=== PATIENT | male | born 2000 | race Caucasian/White ===

== ENCOUNTER 2019-09-05 15:01 | Emergency (ER) | payer BC, OTHER ==
--- NOTE | 2019-09-05 15:04 | UC ---
Throat Pain/Nasal Gerald HPI - HPI Summary HPI Summary: 19 yo male presents with sore throat. He tells me that for the last 3 days has had a sore throat, swollen tonsils, and body aches. He has been taking ibuprofen for his discomfort with good relief. He is eating, drinking, and tolerating po well. Denies fever, chills, rash, cough, abdominal pain, n/v - History of Current Complaint Stated Complaint: SORE THROAT Time Seen by Provider: 09/05/19 15:03 Hx Obtained From: Patient Onset/Duration: Sudden Onset Severity: Moderate Pain Intensity: 6 Pain Scale Used: 0-10 Numeric - Allergies/Home Medications Allergies/Adverse Reactions: Allergies Allergy/AdvReac Type Severity Reaction Status Date / Time cefprozil [From Cefzil] Allergy Unknown Rash Verified 09/05/19 15:19 Home Medications: Home Medications Albuterol HFA INHALER* [Ventolin HFA Inhaler*] 2 puff INH Q4H PRN 09/05/19 [ History Confirmed 09/05/19] Dextromethorphn/Acetaminoph/Cp [Vicks Nyquil Cold & Flu N] 1 liq PO PRN [History] Ibuprofen TAB* [Advil TAB*] 200 mg PO Q6H PRN 09/05/19 [History Confirmed ] PMH/Surg Hx/FS Hx/Imm Hx - Additional Past Medical History Additional PMH: None - Surgical History Surgical History: None - Family History Known Family History: Positive: None - Social History Occupation: Student Lives: Dormitory/Roommates Alcohol Use: Occasionally Substance Use Type: None Smoking Status (MU): Never Smoked Tobacco Review of Systems All Other Systems Reviewed And Are Negative: No Constitutional: Positive: Negative Skin: Positive: Negative Eyes: Positive: Negative ENT: Positive: Sore Throat Respiratory: Positive: Negative Cardiovascular: Positive: Negative Gastrointestinal: Positive: Negative Neurological: Positive: Negative Psychological: Positive: Negative Physical Exam - Summary Physical Exam Summary: GENERAL: NAD. WDWN. No pain distress. SKIN: No rashes, sores, lesions, or open wounds. HEENT: Head: AT/NC Eyes: Conjunctiva clear without inflammation or discharge. Ears: Hearing grossly normal. TMs intact, no bulging, erythema, or edema. Nose: Nasal mucosa pink and moist. TTP maxillary > frontal sinus. Throat: Posterior oropharynx mild erythema and 2+ tonsillar enlargement. Mild white exudates. Uvula midline. No hoarse voice or muffled voice. NECK: Supple. Tonsillar b/l LAD nttp CHEST: CTAB. No r/r/w. No accessory muscle use. Breathing comfortably and in no distress. CV: RRR.. Pulses intact. Cap refill <2seconds NEURO: Alert. PSYCH: Age appropriate behavior. Triage Information Reviewed: Yes Vital Signs: Vital Signs: Temp Pulse Resp BP Pulse Ox 97.7 F 83 18 121/70 99 09/05/19 15:22 09/05/19 15:22 09/05/19 15:22 09/05/19 15:22 09/05/19 15:22 Laboratory Tests 09/05/19 15:35 Group A Strep Rapid Negative Vital Signs Reviewed: Yes Throat Pain/Nasal Course/Dx - Course Course Of Treatment: POC strep negative. Suspect tonsillitis. Will treat with zpak and test for mono - Differential Dx/Diagnosis Provider Diagnosis: Tonsillitis Discharge ED - Sign-Out/Discharge Documenting (check all that apply): Patient Departure All imaging exams completed and their final reports reviewed: No Studies - Discharge Plan Condition: Stable Disposition: HOME Prescriptions: Azithromycin TAB* [Zithromax TAB (Z-MT) 250 mg #6 tabs] 2 tab PO .TODAY, THEN 1 DAILY #1 mt Patient Education Materials: Tonsillitis (ED) Referrals: No Primary Care Phys,NOPCP [Primary Care Provider] - Additional Instructions: If you develop a fever, shortness of breath, chest pain, new or worsening symptoms - please call your PCP or go to the ED immediately. - Billing Disposition and Condition Condition: STABLE Disposition: Home
[2019-09-05 15:30] VITALS: BP 121/70
--- NOTE | 2019-09-06 09:48 | UC ---
- Progress Note Progress Note: + mono -pt is on zpack w/ neg strep -dc zpack -no exertional physical activity bc risk of splenic ruptuire -he is contagious and needs to be cautious. Course/Dx - Diagnoses Provider Diagnoses: Tonsillitis Discharge ED - Sign-Out/Discharge Documenting (check all that apply): Post-Discharge Follow Up All imaging exams completed and their final reports reviewed: No Studies - Discharge Plan Condition: Stable Disposition: HOME Prescriptions: Azithromycin TAB* [Zithromax TAB (Z-MT) 250 mg #6 tabs] 2 tab PO .TODAY, THEN 1 DAILY #1 mt Patient Education Materials: Tonsillitis (ED) Referrals: No Primary Care Phys,NOPCP [Primary Care Provider] - Additional Instructions: If you develop a fever, shortness of breath, chest pain, new or worsening symptoms - please call your PCP or go to the ED immediately. - Billing Disposition and Condition Condition: STABLE Disposition: Home
== END 2019-09-05 15:59 | disposition home or self-care (01) ==
LOC: UCCORT 15:01
DX: J03.90 Acute tonsillitis, unspecified (principal); Z88.1 Allergy status to other antibiotic agents
CPT/HCPCS: 36415; 86308; 87651; 99202; G0463

== ENCOUNTER 2019-09-07 20:09 | Emergency (ER) | payer BC, OTHER ==
[2019-09-07 20:54] VITALS: BP 129/69
--- NOTE | 2019-09-07 21:22 | UC ---
Throat Pain/Nasal Gerald HPI - HPI Summary HPI Summary: Patient is 19 year old male , who present today to the urgent care with sore throat. Sore throat since last Sunday. He was seen here Sunday09/05/19; strep test negative, mono positive. States throat pain getting worse. No fever. Taking 600- 800mg prn w/ not much relief; last dose today 1700. Denies any fever, cough , chest pain or shortness or breath. - History of Current Complaint Chief Complaint: UCRespiratory Stated Complaint: SORE THROAT/ FOLLOW UP MONO Time Seen by Provider: 09/07/19 21:13 Hx Obtained From: Patient Pain Intensity: 7 - Allergies/Home Medications Allergies/Adverse Reactions: Allergies Allergy/AdvReac Type Severity Reaction Status Date / Time cefprozil [From Cefzil] Allergy Unknown Rash Verified 09/07/19 20:48 PMH/Surg Hx/FS Hx/Imm Hx - Additional Past Medical History Additional PMH: Past Medical History : Wrist fracture Past Surgical History: Left ankle ORIF Family History : non contributory Social History : Occasional alcohol, non smoker, no drug use. Student at [employer] Previously Healthy: Yes - Surgical History Surgical History: Yes Surgery Procedure, Year, and Place: LEFT ankle fracture w/ hardware 2017 - Family History Known Family History: Positive: None - Social History Alcohol Use: Occasionally Substance Use Type: None Smoking Status (MU): Never Smoked Tobacco Review of Systems All Other Systems Reviewed And Are Negative: Yes Constitutional: Positive: Fatigue. Negative: Fever Skin: Positive: Negative Eyes: Positive: Negative ENT: Positive: Sore Throat, Other - Dysphagia Respiratory: Positive: Negative. Negative: Cough Cardiovascular: Positive: Negative Gastrointestinal: Positive: Negative Genitourinary: Positive: Negative Motor: Positive: Negative Neurovascular: Positive: Negative Musculoskeletal: Positive: Negative Neurological: Positive: Negative Psychological: Positive: Negative Is Patient Immunocompromised?: No Physical Exam - Summary Physical Exam Summary: Physical Exam: Const: Appears well. No signs of apparent distress present. Alert and oriented x 3. Musculo: Walks with a normal gait. Head/Face: Atraumatic, normocephalic on inspection. Eyes: EOMI and PERRLA in both eyes. Conjunctivae clear. No discharge noted ENT: Hearing normal, TM normal appearing bilaterally There is pharyngeal erythema with enlarged tonsils and overlying exudates. Uvula is midline. Posterior cervical lymphadenopathy is noted Respiratory: Respirations are unlabored. Lungs clear to auscultation bilaterally, no wheezing , rhonchi or rales noted . CVS: Regular rate and Rhythm, S1S2 normal , no murmurs identified. Extremities: Peripheral circulation is grossly normal. Pulses 2+ Abdomen : Soft non tender , nondistended , Bowel sounds present . No guarding , rebound tenderness or rigidity noted. Skin: No lesions or rash located on the upper extremities or on the lower extremities. Neuro: Cranial nerves II to XII intact, motor and sensory intact. DTR Intact bilaterally. Mood is normal. Affect is normal. Triage Information Reviewed: Yes Vital Signs: Initial Vital Signs Temp 98.5 F 09/07/19 20:49 Pulse 94 09/07/19 20:49 Resp 16 09/07/19 20:49 BP 129/69 09/07/19 20:49 Pulse Ox 99 09/07/19 20:49 Vital Signs Reviewed: Yes Throat Pain/Nasal Course/Dx - Course Course Of Treatment: He has a diagnosis of infectious mononucleosis. He has no fevers or chills or cough. Throat pain likely secondary to inflammation. He was given 1 dose of prednisone here and rest was prescribed to the pharmacy for short bursts therapy. He will follow up at [facility] in one to 2 days. - Differential Dx/Diagnosis Provider Diagnosis: Infectious mononucleosis Discharge ED - Sign-Out/Discharge Documenting (check all that apply): Patient Departure All imaging exams completed and their final reports reviewed: No Studies - Discharge Plan Condition: Stable Disposition: HOME Prescriptions: predniSONE [Prednisone 20 MG TAB] 60 mg PO DAILY 4 Days #12 tablet Patient Education Materials: Mononucleosis (ED) Referrals: No Primary Care Phys,NOPCP [Primary Care Provider] - Additional Instructions: Please start taking the medication as prescribed to the pharmacy . Salt water gargles and throat lozenges will be helpful. Follow up with [facility] in 1-2 days Patients blood pressure slightly high in Urgent care today and prehypertensive range , plan follow up with PCP for better control Return to Urgent care / ER if symptoms get worse. - Billing Disposition and Condition Condition: STABLE Disposition: Home
[2019-09-07] MEDS ORDERED: predniSONE TAB* 20 MG PO ONE (21:28)
== END 2019-09-07 21:50 | disposition home or self-care (01) ==
LOC: UCCORT 20:09
DX: B27.90 Infectious mononucleosis, unspecified without complication (principal); R13.10 Dysphagia, unspecified; Z88.1 Allergy status to other antibiotic agents
CPT/HCPCS: 99212; G0463; J7512